=== PATIENT | male | born 1965 | race Caucasian/White ===

== ENCOUNTER 2016-04-26 20:37 | Emergency (ER) | payer OTHER ==
[~2016-04-26] VITALS: Ht 188 cm; Wt 90.9 kg
[2016-04-26 20:53] VITALS: BP 151/98; TEMP 98
[2016-04-26] MEDS ORDERED: NASACORT OTC NS (20:56)
[2016-04-26 22:29] VITALS: PULSE 92
== END 2016-04-26 22:29 | disposition home or self-care (01) ==
LOC: COL.ER 20:37
DX: S01.01XA Laceration without foreign body of scalp, initial encounter (principal); Z23 Encounter for immunization; W22.09XA Striking against other stationary object, initial encounter; Y92.009 Unspecified place in unspecified non-institutional (private) residence as the place of occurrence of the external cause